=== PATIENT | male | born 1945 | race Caucasian/White ===

== ENCOUNTER 2017-07-01 18:44 | Emergency (ER) | payer OTHER ==
[~2017-07-01] VITALS: Ht 180.3 cm; Wt 136.1 kg
[2017-07-01 20:22] LABS: HEMATOCRIT 42.1 % (42.0-52.0); HEMOGLOBIN 12.9 gm/dL (14.0-18.0); MCH 24.1 pg (26.0-34.0); MCHC 30.8 g/dL (28.0-37.0); MCV 78.4 fL (80.0-100.0); MPV 7.9 fl. (7.2-11.1); NUCLEATED RBCS 0 /100WBC; PLATELET COUNT* 193 thou/uL (150-400); RBC 5.37 mil/uL (4.50-6.00); RDW-CV 18.3 % (10.5-14.5); WBC 9.7 thou/uL (4.0-11.0)
[2017-07-01 20:30] LABS: ANION GAP 9 mmol/L (7-16); BUN 28 mg/dL (7-18); CALCIUM 9.5 mg/dL (8.5-10.1); CHLORIDE 104 mmol/L (98-107); CO2 28 mmol/L (21-32); CREATININE 2.3 mg/dL (0.6-1.3); GLUCOSE 127 mg/dL (70-99); POTASSIUM 4.1 mmol/L (3.5-5.1); SODIUM 141 mmol/L (136-145)
[2017-07-01 20:31] LABS: INR 1.3; PROTIME 12.8 Seconds (9.20-11.50)
[2017-07-01 20:45] VITALS: BP 193/120
[2017-07-01 20:46] LABS: ALBUMIN 3.3 g/dL (3.4-5.0); ALKALINE PHOSPHATASE 90 U/L (46-116); LIPASE 136 U/L (73-393); NT-PRO BRAIN NAT PEPTIDE 9773 pg/mL (<300); SGOT 26 U/L (15-37); SGPT 25 U/L (30-65); TOTAL BILIRUBIN 0.8 mg/dL (<0.1-1.0); TOTAL PROTEIN 8.1 g/dL (6.4-8.2); TROPONIN-I LEVEL <0.06 ng/mL (<0.06)
[2017-07-01 21:18] LABS: ABSOLUTE LYMPHOCYTES 0.5 thou/uL (0.8-5.3); ABSOLUTE MONOCYTES 0.5 thou/uL (0.0-1.2); ABSOLUTE NEUTROPHILS 8.7 thou/uL (1.6-8.1); ANISOCYTOSIS 1+; HYPOCHROMASIA 1+; PLATELET ESTIMATE ADEQUATE
--- NOTE | 2017-07-02 10:09 | EKG ---
[place] [address] ELECTROCARDIOGRAM REPORT Name: RENETTA OJEDA [id number] Admission: 07/01/17 Attend Phys: Discharge: 07/01/17 Date of : 47 Report #: [id number] THIS REPORT FOR: //name// [facility] ED Test Date: 2017-07-01 Test Time: 20:03:07 Pat Name: RENETTA OJEDA Department: Room: Gender: M Boat Repairer: UNKNOWN : 1945 Requested By: Darnell May Order Number: [id number] MD: Tesfaye Marquez Measurements Intervals [place] Rate: 112 P: HI: QRS: 17 QRSD: 92 T: -27 QT: 364 QTc: 497 Interpretive Statements Atrial fibrillation Borderline low voltage, extremity leads nonspecific t wave changes No previous ECG available for comparison Electronically Signed On 07-02-2017 10:09:20 CDT by Tesfaye Marquez [email or web address] <ELECTRONICALLY SIGNED> By: Tesfaye Marquez MD, FACC 07/02/17 1009 02 02 Tesfaye Marquez MD, FACC /EPI
== END 2017-07-01 20:47 | disposition short-term general hospital (02) ==
LOC: M.ERS 18:44
PROVIDERS: Emergency Medicine
DX: S06.5X9A Traumatic subdural hemorrhage with loss of consciousness of unspecified duration, initial encounter (principal); I10 Essential (primary) hypertension; W18.39XA Other fall on same level, initial encounter; Y93.89 Activity, other specified; Y92.89 Other specified places as the place of occurrence of the external cause; Y99.8 Other external cause status